=== PATIENT | male | born 1995 | race Caucasian/White ===

== ENCOUNTER 2018-06-22 19:12 | Inpatient (IN) | payer BC, OTHER ==
[~2018-06-22] VITALS: Ht 180.3 cm; Wt 81.6 kg
--- NOTE | 2018-06-22 22:15 | NUR ---
Pre admission note Pt is a 23 year old male here at [facility] for medically supervised Benzo and Opiate withdrawal. Pt is AOx4 and is ambulatory with steady gait. Pt appears to be anxious, restless, agitated, tremulous and withdrawn. Vitals signs: BP 150/99, HR 88, RR 20, O2 97%, T 99.0. Patient denies any pain at this time. Pt is stable and will continue admission upon unit arrival.
[2018-06-22] MEDS ORDERED: HYDROXYZINE PAMOATE 25 MG CAPSULE PO PRN (22:45)
[2018-06-22] MEDS ORDERED: diphenhydrAMINE 50 MG CAPSULE PO PRN (22:45)
[2018-06-22] MEDS ORDERED: MAG HYDROX/AL HYDROX/SIMETH 30 ML LIQUID UDC PO PRN (22:45)
[2018-06-22] MEDS ORDERED: TRAZODONE 50 MG TABLET PO ONE (22:45)
[2018-06-22] MEDS ORDERED: IBUPROFEN 600 MG TABLET PO PRN (22:45)
[2018-06-22] MEDS ORDERED: SRC BENZO WITHDRAWAL ADMITTING PROTOCOL XX PRN (22:45)
[2018-06-22] MEDS ORDERED: BUPRENORPHINE HCL 2 MG TAB.SUBL SL PRN (22:45)
[2018-06-22] MEDS ORDERED: METHOCARBAMOL 750 MG TABLET PO PRN (22:45)
[2018-06-22] MEDS ORDERED: ONDANSETRON ODT 4 MG TAB.RAPDIS SL PRN (22:45)
[2018-06-22] MEDS ORDERED: LOPERAMIDE HCL 2 MG CAPSULE PO PRN ×2 (22:45)
[2018-06-22] MEDS ORDERED: LORAZEPAM 1 MG TABLET PO PRN ×2 (22:45)
[2018-06-22] MEDS ORDERED: SRC OPIOID WITHDRAWAL ADMITTING PROTOCOL XX PRN (22:45)
[2018-06-22] MEDS ORDERED: ACETAMINOPHEN 325 MG TABLET PO PRN (22:45)
[2018-06-22] MEDS ORDERED: LORAZEPAM 2 MG/1 ML VIAL IM PRN (22:45)
[2018-06-22] MEDS ORDERED: CLONIDINE HCL 0.1 MG TABLET PO PRN (22:45)
[2018-06-22] MEDS ORDERED: ONDANSETRON 4 MG/2 ML VIAL IM PRN (22:45)
[2018-06-22] MEDS ORDERED: MAGNESIUM HYDROXIDE 30 ML LIQUID UDC PO PRN (22:45)
[2018-06-22] MEDS ORDERED: MIRALAX 17 GM POWD.PACK PO PRN (22:45)
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
[2018-06-22 23:09] LABS: *AMPHETAMINE, URINE NEGATIVE (NEGATIVE); *BARBITURATE, URINE NEGATIVE (NEGATIVE); *CANNABINOID, URINE NEGATIVE (NEGATIVE); *COCCAINE, URINE NEGATIVE (NEGATIVE); *OPIATE, URINE POSITIVE (NEGATIVE); *PHENCYCLIDINE SCREEN,URINE NEGATIVE (NEGATIVE)
[2018-06-22 23:10] LABS: BASOPHILS % (AUTO) 0.6 % (0.0-2.0); EOSINOPHILS % (AUTO) 0.3 % (0.0-7.0); HEMATOCRIT 44.1 % (36.7-47.1); LYMPHOCYTES # (AUTO) 1.2 K/uL (20.0-40.0); LYMPHOCYTES % (AUTO) 19.4 % (20.5-51.5); MEAN CORPUSCULAR HGB CONC 34 g/dL (32.5-36.3); MEAN CORPUSCULAR VOLUME 85.3 fL (73.0-96.2); MONOCYTES # (AUTO) 0.3 K/uL (2.0-10.0); MONOCYTES % (AUTO) 4.7 % (0.0-11.0); NEUTROPHILS # (AUTO) 4.6 K/uL (1.8-8.9); PLATELET COUNT (AUTO) 268 K/uL (152-348); RED BLOOD CELL COUNT(AUTO) 5.17 MIL/uL (4.06-5.63); WHITE BLOOD COUNT (AUTO) 6.2 K/uL (3.6-10.2)
[2018-06-22 23:21] LABS: ALANINE AMINOTRANSFERASE 19 U/L (16-63); ALKALINE PHOSPHATASE 133 U/L (50-136); AMYLASE 82 U/L (25-115); ASPARTATE AMINOTRANSFERASE 13 U/L (15-37); BILIRUBIN,TOTAL 1.1 mg/dL (0.2-1.0); CARBON DIOXIDE 26 mmol/L (21-32); CHLORIDE 94 mmol/L (98-107); CREATININE 1.1 mg/dL (0.6-1.3); LIPASE 80 U/L (73-393); MAGNESIUM 1.7 mg/dL (1.8-2.4); POTASSIUM 3.6 mmol/L (3.5-5.1); TOTAL PROTEIN, SERUM 8.2 g/dL (6.4-8.2); UREA NITROGEN, BLOOD 11 mg/dL (7-18)
[2018-06-22] MEDS ORDERED: BLOOD SUGAR DIAGNOSTIC 1 EACH STRIP VI ONE (23:30)
[2018-06-22 23:37] LABS: ETHANOL < 3 MG/DL (0-0)
--- NOTE | 2018-06-22 23:37 | NUR ---
Accu-Check Pt's blood sugar was initial 465 and recheck pt's glucose and it was 478, pt self administered 10 Units of insulin with his insulin pump. MD was made aware. Will continue to monitor patient for s/s of DKA. pt is breathing even and unlabored. Safety measures in place and will continue to monitor.
[2018-06-22 23:49] LABS: GLUCOSE 528 mg/dL (74-106)
[2018-06-23 00:01] LABS: THYROID STIMULATING HORMONE 0.206 mIU/mL (0.358-3.740)
--- NOTE | 2018-06-23 00:07 | NUR ---
PRN Ativan, Imodium, Clonidine Pt is presenting with withdrawal s/s: tremors, yawning, goosebump, anxiety, diarrhea, moist eyes, and restlessness. Administered PRN Ativan, Imodium and Clonidine. Pt did not tolerate the medications and started vomiting immediately after medication was given, following a seizure that lasted 5 minutes. Safety measures were in place and seizure protocol was followed.
[2018-06-23 00:08] VITALS: BP 150/99
--- NOTE | 2018-06-23 00:13 | NUR ---
Seizure Patient had seizure, placed on his side, placed on O2 via nasal cannula at 6 lpm. Vital signs checked: LB=707/99, ceqfz=367. Suctioned patient, as he was vomiting food particles. Ativan 2 mg IM administered per MD order for seizure. Seizure protocol followed. Rapid Response called. Safety and seizure precautions in place.
--- NOTE | 2018-06-23 00:25 | NUR ---
Nursing note Patient started to have a seizure for 5 minutes immediately after PRN medications were administered. Patient had a total of 3 seizures. Rapid response was called, pt was positioned to the left side, suction was provided with 2 L of oxygen per nasal canola. PRN Ativan 2mg IM was administered as ordered. Patient was transferred to ER for further evaluation. Endorse patient to ER nurse and ER Doctor.
[2018-06-23] MEDS ORDERED: LORA-259 PO (01:00)
[2018-06-23] MEDS ORDERED: TRAZ-214 PO (01:00)
[2018-06-23] MEDS ORDERED: BLOOD SUGAR DIAGNOSTIC 1 EACH STRIP VI SCH (07:30)
[2018-06-23] MEDS ORDERED: MULTIVITAMINS,THERAPEUTIC TABLET PO SCH (09:00)
[2018-06-23] MEDS ORDERED: TUBERCULIN,PURIF.PROT.DERIV. 5 TU/0.1 ML TEST ID ONE (09:00)
[2018-06-24 07:06] LABS: HEPATITIS B SURFACE AG Negative (Negative)
== END 2018-06-23 00:25 | disposition short-term general hospital (02) | DRG 897 ==
LOC: SRC 21:36
PROVIDERS: ADMIT Family Medicine Addiction Medicine; ATTEND Family Medicine Addiction Medicine
PROC: HZ2ZZZZ Detoxification Services for Substance Abuse Treatment (ICD-10-PCS; principal; 2018-06-22)
DX: F13.230 Sedative, hypnotic or anxiolytic dependence with withdrawal, uncomplicated (principal); G40.509 Epileptic seizures related to external causes, not intractable, without status epilepticus; F11.23 Opioid dependence with withdrawal
CPT/HCPCS: 36415; 80307; 83690; 83735; 84443; 85025; 86592; 86705; 86803; 87340; 87806; A4663; G0480; J2060; Q0162

== ENCOUNTER 2018-06-23 00:28 | Inpatient (IN) | payer BC, OTHER ==
[~2018-06-23] VITALS: Ht 172.7 cm; Wt 86.2 kg
[2018-06-23] MEDS ORDERED: LORAZEPAM 2 MG/1 ML VIAL ONE (00:36)
[2018-06-23] MEDS ORDERED: ONDANSETRON 4 MG/2 ML VIAL ONE (00:38)
--- NOTE | 2018-06-23 00:40 | NUR ---
PT BIB [facility], C/C WITNESSED SEIZURES X 3, LAST ONE LASTING APPROXIMATELY 5 MINUTES. VSS. PT IS A/OX4, HAD ONE EPISODE OF VOMITING PRIOR TO ARRIVAL. PT SELF-ADMIN 10 UNITS OF INSULIN AT 0000 AND 1 MG OF ATIVAN WAS ADMIN BY [facility] PREDICTIVE MAINTENANCE TECHNICIAN BUT PT EXPERIENCED VOMITING EPISODE. [facility] ADMIN 2 MG IM SUBSEQUENTLY.
[2018-06-23] MEDS ORDERED: INSULIN REGULAR, HUMAN 300 UNIT/3 ML VIAL SQ ONE (00:45)
[2018-06-23] MEDS ORDERED: ONDANSETRON 4 MG/2 ML VIAL IV ONE (00:45)
[2018-06-23] MEDS ORDERED: LORAZEPAM 2 MG/1 ML VIAL IV ONE (00:45)
[2018-06-23] MEDS ORDERED: IV NORMAL SALINE 1000 ML BAG IV ONE ×2 (00:45)
[2018-06-23] MEDS ORDERED: INSULIN REGULAR, HUMAN 300 UNIT/3 ML VIAL ONE (00:49)
--- NOTE | 2018-06-23 00:57 | NUR ---
PT EXPERIENCED ANOTHER SEIZURE, GENERALIZED THROUGHOUT THE BODY, LASTING ABOUT 3 MIN. PT NOTED TO BE GAGGING WHILE SEIZING. SPO2 REMAINED ABOVE 98% ON 02 2 LPM VIA N/C. NO POST-ICTAL STATE NOTED, PT IMMEDIATELY STARTED CONVERSING WITH ME.
[2018-06-23] MEDS ORDERED: TRAZ-214 PO (01:00)
[2018-06-23] MEDS ORDERED: LORA-259 PO (01:00)
--- NOTE | 2018-06-23 01:05 | NUR ---
ER SPEAKING W/ DR. LÓPEZ RE PT'S TELE ADMISSION.
--- NOTE | 2018-06-23 01:11 | NUR ---
DISTRIBUTION LEAD AT BEDSIDE.
[2018-06-23] MEDS ORDERED: MISCELLANEOUS MED XX ONE (01:15)
[2018-06-23] MEDS ORDERED: ONDANSETRON 4 MG/2 ML VIAL IV PRN (01:15)
[2018-06-23] MEDS ORDERED: ACETAMINOPHEN 325 MG TABLET PO PRN (01:15)
--- NOTE | 2018-06-23 01:23 | NUR ---
PT REFUSES TO CONTINUE O2 ADMIN. SPO2 REMAINS ABOVE 96% ON ROOM AIR, WILL CONTINUE TO MONITOR.
--- NOTE | 2018-06-23 01:57 | NUR ---
ADMITTING REPORT GIVEN TO ADRIA SANABRIA.
--- NOTE | 2018-06-23 01:57 | NUR ---
ADMITTING NURSE, DANIELE COVINGTON, WILL COMPLETE THE INFUSION OF THE NS BOLUS.
--- NOTE | 2018-06-23 02:15 | NUR ---
Pt. admitted to TELE 211, under care of Dr. LÓPEZ. Belongs List completed
--- NOTE | 2018-06-23 02:15 | NUR ---
RECEIVED PT FROM ER VIA BED. UNDER THE CARE OF DR. RENE JAIME. PT UNDER TELEMETRY. DX; SEIZURE. PT SHOWS NO SIGNS OF ACUTE DISTRESS. PT IV INTACT. [facility] ASSESSMENT DONE. ASSESSMENT PROCESS AND CARE PLAN INITIATED. SEIZURE PRECAUTION . SAFETY AND COMFORT PROVIDED. WILL CONTINUE TO MONITOR.
[2018-06-23 02:28] VITALS: BP 123/60
[2018-06-23] MEDS: LORAZEPAM 2 MG/1 ML VIAL IV PRN ×3 (03:09→15:42)
--- NOTE | 2018-06-23 03:16 | NUR ---
PT REFUSED TO HAVE HIS IV FLUID. SOME JERKING MOVEMENTS OBSERVED. ATIVAN GIVEN.CHARGE NURSE AWARE. PT TOLERATED THE MEDICATION . SEIZURE PRECAUTION OBSERVED. WILL CONTINUE TO MONITOR.
[2018-06-23 04:00] VITALS: BP 131/66
[2018-06-23] MEDS: IV NS 1000 ML 1,000 ML IV PRN ×3 (04:04→21:21)
[2018-06-23] MEDS: PANTOPRAZOLE SODIUM 40 MG TABLET.DR PO SCH (06:52)
--- NOTE | 2018-06-23 06:52 | NUR ---
PT SLEPT INTERMITTENTLY. PT IV INTACT.PT ALLOWED HIS IV FLUID RUNNING. PT REFUSED TO HAVE HIS PROTONIX. PT REFUSED ALSO TO HAVE HIS MRSA SWAB. CHARGE NURSE AWARE. SAFETY AND COMFORT PROVIDED. ALL NEEDS ARE MET. WILL ENDORSE ACCORDINGLY TO INCOMING NURSE FOR CONTINUITY OF CARE.
--- NOTE | 2018-06-23 07:30 | NUR ---
RECEIVED PATIENT FROM AIR DEFENSE CONTROL OFFICER NURSE, PATIENT IN BED ASLEEP, BUT RESPONSIVE. PLACED SUCTION EQUIPMENT AT BEDSIDE FOR SEIZURE PRECAUTIONS.
[2018-06-23] MEDS ORDERED: DEXTROSE 50% 50 ML DISP.SYRIN IV PRN (10:00)
[2018-06-23] MEDS ORDERED: INSULIN REGULAR, HUMAN 300 UNITS/3 ML VIAL SQ PRN (10:00)
[2018-06-23] MEDS: BLOOD SUGAR DIAGNOSTIC 1 EACH STRIP VI SCH ×3 (11:59→21:29)
[2018-06-23 12:00] VITALS: BP 136/70
[2018-06-23] MEDS: INSULIN REGULAR, HUMAN 300 UNIT/3 ML VIAL SQ PRN ×2 (12:15→16:53)
--- NOTE | 2018-06-23 12:20 | NUR ---
PATIENT REPORTING THAT HE IS NOT FEELING WELL AND FEELING WHAT HE FELT BEFORE SEIZURE THE LAST TIME. ADMINISTERED ATIVAN.
--- NOTE | 2018-06-23 15:42 | NUR ---
Patient began to seize, rapid response called, vitals recorded, accucheck performed blood glucose 311, ativan administered.
[2018-06-23 16:00] VITALS: BP 140/72
[2018-06-23] MEDS: GABAPENTIN 300 MG CAPSULE PO SCH (18:36)
--- NOTE | 2018-06-23 18:54 | NUR ---
Patient currently in bed having EEG performed. no distress noted at this time, bed in low position, side rails up x2.
[2018-06-23 20:26] VITALS: BP 135/68
[2018-06-23] MEDS ORDERED: INSULIN GLARGINE,HUM 300 UNITS/3 ML CARTRIDGE SQ SCH (21:00)
--- NOTE | 2018-06-23 22:08 | NUR ---
request pt sleeping pill, called doctor education analyst, received telephone order for trazadone 100mg po x1 for sleep
[2018-06-23] MEDS ORDERED: TRAZODONE 100 MG TABLET PO ONE (22:15)
[2018-06-24 00:41] VITALS: BP 143/66
[2018-06-24] MEDS: LORAZEPAM 2 MG/1 ML VIAL IV PRN ×3 (00:42→09:12)
[2018-06-24 04:13] VITALS: BP 131/74
--- NOTE | 2018-06-24 04:20 | NUR ---
i was called due to pt was having seizure, per savannah Lockett, he went there to reattached the leads since pt was off monitor, pt was sitting up then suddenly pt dropped to bed lying become non responsive and started shaking with saliva coming out from his mouth. Rapid Response called and Dr. Garrison came.no changes on monitor, sinus rhythm vss 131/74 Hr 71, temp 100.2, checked sugar 431mg/dl, ,then pt woke up , i started conversing to him asking him question, he was even asking for sleeping pill, and i told him he just had ativan coz he was having seizure, then he was asking for tea, then suddenly pt rolled up his eyeball and started shaking again even shaking fast, im at bedside while suctioning and protecting his head from the siderails, kept his head to the side. then after 3-4minutes he woke up , oriented, asking for pants coz he said he pee on his underpants. checked bp no changes 130/75 hr 78. kept on 3 liters oxygen. pt awake , Dr. Garrison talk on the phone with Dr. Campos but no changes with ativan order. i called again Dr. Campos regarding blood sugar that was 431 mg/dl and order to give one time 10 units of insulin. spoke with pt regarding medication why patient not on any anti-convulsant medication and he says he pass out with anti-convulsant medication, pt stated he needs to be back on the insulin pump, he takes 50 units in the morning and [address] Campos aware that is why he gave x1 order of insulin. will continue to monitor. continue with iv fluids.total seizure time is 10 minutes for 3 episodes. kept on monitor, remains in bed. bed alarm activated.
[2018-06-24] MEDS ORDERED: INSULIN REGULAR, HUMAN 300 UNIT/3 ML VIAL SQ ONE (04:30)
[2018-06-24] MEDS: IV NS 1000 ML 1,000 ML IV PRN (06:29)
[2018-06-24] MEDS: PANTOPRAZOLE SODIUM 40 MG TABLET.DR PO SCH (07:33)
--- NOTE | 2018-06-24 07:39 | NUR ---
patient resting comfortably in bed at this time. sinus miracle on tele. no signs of seizure activity at this time. strict seizure precautions implemented. ivf running. stable condition at this time. will continue to monitor BS closely and monitor for seizures. call light within reach. safety measures implemented.
[2018-06-24] MEDS: BLOOD SUGAR DIAGNOSTIC 1 EACH STRIP VI SCH ×2 (07:55→11:43)
[2018-06-24] MEDS: INSULIN REGULAR, HUMAN 300 UNIT/3 ML VIAL SQ PRN ×2 (07:58→11:48)
--- NOTE | 2018-06-24 08:00 | NUR ---
patient refused blood draws this morning. explained importance of blood draw. patient continues to refuse.
[2018-06-24] MEDS: NICOTINE 21 MG/24HR PATCH TD SCH ×2 (08:01→11:48)
[2018-06-24] MEDS: GABAPENTIN 300 MG CAPSULE PO SCH ×2 (08:01→12:07)
[2018-06-24 09:00] VITALS: BP 117/78
--- NOTE | 2018-06-24 09:20 | NUR ---
administered ativan 2 mg iv prn for suspected seizure activity. seizure precautions were implemented. vital signs stable. blood sugar 331. stable at this time. no signs of aspiration.
--- NOTE | 2018-06-24 09:31 | NUR ---
given report by operations and maintenance supervisor that if seizure activity is presented by patient: do not administer ativan 2mg ivp. monitor patient closely.
[2018-06-24 10:53] VITALS: BP 118/46
--- NOTE | 2018-06-24 13:45 | NUR ---
PATIENT DISCHARGED BACK TO [facility] AT THIS TIME IN STABLE CONDITION. NO SIGNS OF SEIZURE ACTIVITY. SEIZURE PRECAUTIONS IMPLEMENTED. DISCHARGE PACKET COMPLETED. DISCHARGE INSTRUCTIONS/EDUCATION PROVIDED TO PATIENT. IV-TAKEN OUT. ID-BAND TAKEN OUT. TELEMETRY BOX RETURNED. PATIENT'S BELONGINGS RETURNED. PATIENT WHEELCHAIRED TO [facility] SAFELY.
== END 2018-06-24 13:45 | DRG 880 ==
LOC: ER 00:29 → TELE 02:00 → MED 06-24 11:28
PROVIDERS: ATTEND Internal Medicine
DX: F44.5 Conversion disorder with seizures or convulsions (principal); F11.20 Opioid dependence, uncomplicated; F13.20 Sedative, hypnotic or anxiolytic dependence, uncomplicated; E10.65 Type 1 diabetes mellitus with hyperglycemia; Z96.41 Presence of insulin pump (external) (internal); Z79.4 Long term (current) use of insulin; F17.210 Nicotine dependence, cigarettes, uncomplicated; Z87.820 Personal history of traumatic brain injury; Z76.5 Malingerer [conscious simulation]
CPT/HCPCS: 36415; 70450; 71045; 80361; 93005; A4663; G0378; J1815; J2060; J2405; J7030

== ENCOUNTER 2018-06-24 13:53 | Inpatient (IN) | payer BC, OTHER ==
[~2018-06-24] VITALS: Ht 180.3 cm; Wt 81.6 kg
--- NOTE | 2018-06-24 13:47 | NUR ---
ADMISSION Pt transferred from [facility] 211 via w/c and transported by staff. Pt alert and oriented to name, place, and time. Perrla. Skin warm to touch. Respirations even and unlabored. Appears disheveled. Dirt under fingernails of both hands noted. Dirt on fingers of both hands noted. Clothes dirty. T=98.5 P=80 R=16 ZO=565/76 O2=98%@ra. Pt came from home ( before being transferred to [facility]). Said the reason he admitted himself she said shed leave me, referring to the girlfriend. Says he started and continued using substances because, I like drugs. Denies attempting sobriety, but stated that he has been to 26 treatment programs with the last one 6 months ago. Says substance use has affected his relationships with family, friends, and his girlfriend. States his internal motivator is, not to get left, referring to the girlfriend. Pt states his withdrawal symptoms are: sweats, vomit, spots, unsteady gait. States his last seizure was this morning @0900 with unspecified time while on the 2nd floor. Denies experiencing withdrawal induced delirium or any withdrawal induced cardiac complications. States he overdosed on Fentanyl unknown amount on 01/2018, I was in coma for 26 days at a hospital called [facility] in [place] Denies any PCP or psychiatrist. Denies SI/SA, or ever being put on a 5150. States has been to over 26 treatments and last one was 6 months ago but does not remember the name. SUBSTANCE HX -xanax po 60mg daily x 6 months. Last took 06/20/18 4mg in the morning. Total 17 years. - ativan po 1mg tid x 2 days. Last took 2mg on 06/24/18 @0900. Total 2 days. - Fentanyl IV 3gm daily x 7 years. Last took 1gm on 06/21/18 in morning. Total 7 years. -Heroin IV 0.5 oz daily x 7 years. Last took 1gm on 06/21/18 in morning. Total 7 years. Substance hx does not match the substance history the pt gave on initial admission. MEDICAL HX DM Addendum: 06/24/18 at 1933 by NETTE RUSH RN additional received report from Rodolfo COVINGTON
[~2018-06-24 13:53] MED LIST: LORA-259 PO; TRAZ-214 PO
[2018-06-24] MEDS ORDERED: HYDROXYZINE PAMOATE 25 MG CAPSULE PO PRN (15:00)
[2018-06-24] MEDS ORDERED: diphenhydrAMINE 50 MG CAPSULE PO PRN (15:00)
[2018-06-24] MEDS ORDERED: ACETAMINOPHEN 325 MG TABLET PO PRN (15:00)
[2018-06-24] MEDS ORDERED: IBUPROFEN 600 MG TABLET PO PRN (15:00)
[2018-06-24] MEDS ORDERED: MIRALAX 17 GM POWD.PACK PO PRN (15:00)
[2018-06-24] MEDS ORDERED: LOPERAMIDE HCL 2 MG CAPSULE PO PRN ×2 (15:00)
[2018-06-24] MEDS ORDERED: LORAZEPAM 2 MG/1 ML VIAL IM PRN (15:00)
[2018-06-24] MEDS ORDERED: ONDANSETRON 4 MG/2 ML VIAL IM PRN (15:00)
[2018-06-24] MEDS ORDERED: MAG HYDROX/AL HYDROX/SIMETH 30 ML LIQUID UDC PO PRN (15:00)
[2018-06-24] MEDS ORDERED: CLONIDINE HCL 0.1 MG TABLET PO PRN (15:00)
[2018-06-24] MEDS ORDERED: ONDANSETRON ODT 4 MG TAB.RAPDIS SL PRN (15:00)
[2018-06-24] MEDS ORDERED: MAGNESIUM HYDROXIDE 30 ML LIQUID UDC PO PRN (15:00)
[2018-06-24] MEDS ORDERED: INSULIN REGULAR, HUMAN 300 UNITS/3 ML VIAL SQ PRN (15:00)
[2018-06-24] MEDS ORDERED: INSULIN REGULAR, HUMAN 300 UNIT/3 ML VIAL SQ PRN (15:00)
[2018-06-24] MEDS ORDERED: DEXTROSE 50% 50 ML DISP.SYRIN IV PRN (15:00)
[2018-06-24] MEDS ORDERED: BLOOD SUGAR DIAGNOSTIC 1 EACH STRIP VI SCH (16:30)
[2018-06-24] MEDS ORDERED: GABAPENTIN 300 MG CAPSULE PO SCH (17:00)
--- NOTE | 2018-06-24 19:00 | NUR ---
START OF SHIFT Received 23 year old male patient admitted on 06/24/18 for Benzodiazepines and Opiate withdrawal. Pt is sleeping at this time. Pt received PRN Zofran on day shift. Pt not currently on a taper. Last CIWA 9 at 1600. Bed is low, padded side rails up x 2, and call díaz in reach. Respirations even and unlabored. Will continue to monitor.
--- NOTE | 2018-06-24 19:19 | NUR ---
END OF SHIFT Pt 23 y/o male admitted for etoh and opiate withdrawal. Pt alert and oriented to name, place, and time. Perrla. Skin warm to touch. Respirations even and unlabored. Appears disheveled. Clothes scattered throughout the room. Encourage to maintain hygiene. Anxious and restless. Fidgety. Pressured speech. Complaints of generalized discomfort. Last dn=515cv/dL @1630. Bed on lowest position with padded siderails x2 up for safety. Call light within reach.
--- NOTE | 2018-06-24 19:50 | NUR ---
Seizure Activity Pt awoke, alert and oriented. Requested something to eat. Food and drink given. He then requested to go to group. Due to his unsteadiness pt was taken via wheelchair to group. Was made aware that pt c/o headache. Pt was taken via wheelchair back to room for medication. Upon entering room at 1939 pt appeared to be having a seizure. He was given O2 via nasal cannula and placed on left side. This seizure lasted 10 seconds. 1940 pt had 2nd seizure lasting 20 seconds. 1943 pt had 3rd seizure lasting 20 seconds. Pt then sat up in bed and was awake and alert. No Ativan given as did not meet 2 minute seizure parameter of order. Pt then requested to go smoke. Made aware that he had just had seizure and for safety he needed to stay in bed for right now. Pt agreed. to be notified.
--- NOTE | 2018-06-24 20:28 | NUR ---
LINNETTE VERA notified of situation and received orders to not allow pt out to smoke for safety. Pt became angry and stated, "I know I wont have another seizure. I'm OK now. I get an aura, and I don't have it now. I want to smoke or I am going to leave". When asked about his aura he said, "I get a headache and I'm telling you I don't have one now". Reinforced MD orders and that they were in place for pt safety. Pt adamant about either he will smoke or he will leave. Pt was made aware of risks of smoking and leaving. Multiple attempts were made to redirect and encourage pt to stay and comply with treatment. He declined and signed out LINNETTE.
[2018-06-24] MEDS ORDERED: INSULIN GLARGINE,HUM 300 UNITS/3 ML CARTRIDGE SQ SCH (21:00)
--- NOTE | 2018-06-24 21:06 | NUR ---
LEFT UNIT Continued attempts to encourage pt to stay for treatment. Pt refused. Pt was given his belongings. Pt was given information on available resources. Escorted off the unit by SERVICE ATTENDANT CAFETERIA supervisor riprap placing at 2105.
[2018-06-25] MEDS ORDERED: TUBERCULIN,PURIF.PROT.DERIV. 5 TU/0.1 ML TEST ID ONE (09:00)
[2018-06-25] MEDS ORDERED: MULTIVITAMINS,THERAPEUTIC TABLET PO SCH (09:00)
== END 2018-06-24 21:06 | disposition left against medical advice (07) | DRG 894 ==
LOC: SRC 13:53
PROVIDERS: ADMIT Family Medicine Addiction Medicine; ATTEND Family Medicine Addiction Medicine
PROC: HZ2ZZZZ Detoxification Services for Substance Abuse Treatment (ICD-10-PCS; principal; 2018-06-24)
DX: F13.230 Sedative, hypnotic or anxiolytic dependence with withdrawal, uncomplicated (principal); G40.509 Epileptic seizures related to external causes, not intractable, without status epilepticus; G47.00 Insomnia, unspecified; E10.9 Type 1 diabetes mellitus without complications; F11.23 Opioid dependence with withdrawal; Z79.4 Long term (current) use of insulin; F17.210 Nicotine dependence, cigarettes, uncomplicated
CPT/HCPCS: J1815; Q0162